=== PATIENT | female | born 1970 | race Caucasian/White ===

== ENCOUNTER 2025-02-23 13:53 | Outpatient (CLI) | payer MEDICAID ==
[2025-02-23 14:42] VITALS: PULSE 73; RESP 15; O2SAT 97
== END 2025-02-23 23:59 | disposition home or self-care (01) ==
LOC: EDSEX 13:53 → RT 13:53
PROVIDERS: ATTEND Family Medicine
DX: D86.0 Sarcoidosis of lung (principal)
CPT/HCPCS: 94010; 94760

== ENCOUNTER 2025-03-08 10:27 | Outpatient (CLI) | payer MEDICAID | END 2025-03-08 23:59 | disposition home or self-care (01) | LOC: RAD 10:27 | PROVIDERS: ATTEND Family Medicine | DX: I25.10 Atherosclerotic heart disease of native coronary artery without angina pectoris (principal); R06.02 Shortness of breath; Z98.84 Bariatric surgery status; D86.0 Sarcoidosis of lung; Z90.49 Acquired absence of other specified parts of digestive tract | CPT/HCPCS: 71046; 71250 ==

== ENCOUNTER 2025-08-24 06:26 | Outpatient (CLI) | payer MEDICAID ==
[2025-08-24] MEDS ORDERED: iohexol 300 MG/1 ML 50ml polymer ONE (06:42)
[2025-08-24] MEDS ORDERED: GADOTERATE MEGLUMINE 7.5 MMOL/15 ML VIAL IV ONE (06:42)
[2025-08-24] MEDS ORDERED: LIDOcaine 1% 30ml preserv. free vial ONE (06:42)
[2025-08-24] MEDS ORDERED: LIDOcaine 1%/PF 5ML 10 MG/ML VIAL ONE (06:42)
--- NOTE | 2025-08-24 10:32 | RADIOLOGY REPORT ---
ANGIO ARTHROGRAM (A) Date: 08/24/2025 07:14 AM Clinical History: PAIN Comparison: None Procedure: Verbal and written informed consent were obtained from the patient for the procedure of left shoulder joint fluoroscopically guided arthrogram, after the procedure, risks, and benefits of the procedure were explained to the patient. Risks include bleeding, infection, reaction to injected medications, and damage to surrounding anatomic structures. The patient's questions were answered. The patient's most recent medical history was reviewed. A time out was performed to verify the patient's name, date of , and correct location of the procedure, prior to initiation of the procedure. The patient was placed supine on the fluoroscopic table and the area overlying the left shoulder joint was prepped and draped in the usual sterile fashion. The patient tolerated the procedure well. There were no immediate complications. Home-care instructions were reviewed with the patient prior to the patient's discharge from the fluoroscopy suite. The patient verbally affirmed understanding of these instructions. Impression: Technically successful fluoroscopically guided left shoulder joint arthrogram. The patient was transported to MRI for further imaging at the completion of the procedure. Procedure by Dr. Mathis
--- NOTE | 2025-08-24 11:41 | RADIOLOGY REPORT ---
CLINICAL HISTORY: PAIN IN LEFT SHOULDER TECHNIQUE: Multisequence multiplanar MR arthrogram images of the left shoulder were obtained after the uneventful intra-articular administration of dilute gadolinium contrast under fluoroscopic guidance. For details concerning the contrast injection, refer to the separately dictated same-day conventional arthrogram report. COMPARISON: Correlation made to same day arthrogram injection images. FINDINGS: Acromioclavicular joint: There is mild acromioclavicular capsular hypertrophy and mild edema. There is Type 2 acromion. Small to moderate fluid in the subacromial / subdeltoid bursa. No contrast in the subacromial / subdeltoid bursa. Rotator cuff tendons: Mild tendinosis of the distal supraspinatus and infraspinatus tendons. There is bursal surface fraying involving the anterior fibers of the distal supraspinatus tendon near its insertion. There is somewhat focal T1 and T2 hypointense signal along the bursal surface of the distal s upraspinatus and infraspinatus tendons measuring up to 1 cm in greatest dimension, may be seen with hydroxyapatite deposition disease in the appropriate clinical setting. Subscapularis and teres minor tendons are intact. Biceps tendon: No significant tendinosis. No evidence of attrition or tear. Labrum: There is a tear of the posterior labrum extending near the posterior inferior labrum, undermining the glenoid attachment of the labrum. Bones: No fracture or focal marrow contusion. Muscles: Normal muscle bulk. No atrophy. Other: No other significant findings. IMPRESSION: 1. Rotator cuff tendinosis with mild bursal surface fraying of the distal supraspinatus tendon and focal calcification along the bursal surface of the distal supraspinatus and infraspinatus tendons, may be seen with hydroxyapatite deposition disease, including calcific tendinitis in the appropriate clinical setting. 2. Tear of the posterior labrum extending near the posterior inferior labrum. 3. Mild acromioclavicular hypertrophy with mild to moderate subacromial / subdeltoid bursitis. 4. Additional findings as described above.
== END 2025-08-24 23:59 | disposition home or self-care (01) ==
LOC: MRI 06:26
PROVIDERS: ATTEND Pediatrics Sports Medicine
DX: S43.492A Other sprain of left shoulder joint, initial encounter (principal); M75.32 Calcific tendinitis of left shoulder; M25.512 Pain in left shoulder; M19.012 Primary osteoarthritis, left shoulder; M25.412 Effusion, left shoulder; Z79.82 Long term (current) use of aspirin; Z79.84 Long term (current) use of oral hypoglycemic drugs; Z79.890 Hormone replacement therapy; Z79.899 Other long term (current) drug therapy; Z88.8 Allergy status to other drugs, medicaments and biological substances; X58.XXXA Exposure to other specified factors, initial encounter; Y93.89 Activity, other specified; Y92.89 Other specified places as the place of occurrence of the external cause; Y99.8 Other external cause status
CPT/HCPCS: 23350; 73222; 77002; A9575; J2003; J3490; Q9967